=== PATIENT | female | born 1995 | race Caucasian/White ===

== ENCOUNTER 2020-09-05 02:35 | Emergency (ER) | payer OTHER, SELFPAY ==
[2020-09-05 02:36] VITALS: BP 104/65; PULSE 78; RESP 16; TEMP 36.8; O2SAT 100; BMI 25.7
--- NOTE | 2020-09-05 03:22 | EDS_ITS ---
HPI History of Present Illness Chief Complaint: Abd Pain Informant: patient Onset/Context/Timing Onset: Today Narrative Narrative: Patient presents here significant other after leaving work due to transient epigastric pain starting proximally 3 hours ago. States lasted an hour. States she tried to make herself vomit initially however did not help symptoms eventually got better. She has bowel movements every other day nonbloody nontarry. Reports over the last 6 months she has changed her diet and her lifestyle has lost 60 pounds intentionally. However states around 7 weeks ago symptoms of epigastric discomfort would come and go specially with meals. Denies fever or urinary symptoms. Prior to that denied any similar symptoms in the past. She takes Tylenol as needed does not take NSAIDs. She states she has an appoint with her PCP this coming Wednesday for evaluation. Prior similar symptoms: Yes PFSH PFSH Home Medications omeprazole 40 mg PO DAILY #30 cap 09/05/20 [Rx Last Taken Unknown] sucralfate [Carafate] 1 g PO BID #60 tab 09/05/20 [Rx Last Taken Unknown] Allergy/AdvReac Type Severity Reaction Status Date / Time No Known Allergies Allergy Verified 09/05/20 02:41 Social History Smoking Status: Never smoker ROS ROS ED Constitutional Constitutional ED: Denies chills, fever(s) or sweats Eyes Eyes: Denies change in vision ENT ENT ED: Denies dysphagia or sore throat Cardiovascular Cardiovascular: Denies chest pain, leg edema, palpitations or racing heartbeat Respiratory/Chest Respiratory/Chest: Denies cough, dyspnea or dyspnea on exertion Gastrointestinal Gastrointestinal: Reports abdominal pain; Denies diarrhea, nausea or vomiting Genitourinary Genitourinary ED: Denies dysuria, hematuria or urinary frequency Musculoskeletal Musculoskeletal: Denies back pain, extremity pain or neck pain Integumentary Denies rash or wounds Neurologic Neurologic: Denies headache(s), paresthesias or weakness EXAM Physical Exam Const Vital Signs: 09/05/20 02:36 Temperature 98.3 F Temperature Source Oral Pulse Rate 78 Respiratory Rate 16 Blood Pressure 104/65 Blood Pressure Mean 78 Pulse Ox 100 Positive well nourished and well developed General Appearance ED: well developed and NAD HEENT Reports moist mucous membranes normocephalic and atraumatic Eyes PERRL, EOMs intact bilaterally and conjunctivae normal General Eye ED: Yes normal appearance of both eyes Neck no lymphadenopathy and supple General: Negative for tenderness Chest Wall Chest: Negative for tenderness Resp normal respiratory effort and normal air movement Effort and Inspection: symmetric chest movement; Negative for respiratory distress Cardio regular rate, regular rhythm and no murmurs Peripheral Pulses: pulses 2+ throughout GI normal to inspection, nondistended, normoactive bowel sounds and non-tender GI Narrative: Negative Isabel's or McBurney's tenderness Palpation: Negative for guarding or rebound tenderness present Back/Spine no CVA tenderness and no thoracic nor lumbar tenderness Extremity normal to inspection General Extremety ED: Negative for edema or tenderness General Extremity: Negative for edema Neuro oriented x3 and no sensory deficits noted Sensorium / Orientation: awake and alert Skin no rashes or lesions noted and no wounds MDM MDM MDM Narrative Medical decision making narrative: Patient vitals stable currently symptoms resolved. History concerning for gastritis symptoms without bleeding. Discussed with patient will place on a PPI along with Carafate monitor symptoms. She has not had any endoscopies in the past. She will be given follow-up with general surgery for evaluation. All questions answered. Discharge Plan Triage Chief Complaint: Abd Pain ED Provider: Jann Adamson Dx/Rx/DC Orders Instructions: ED Gastritis (Adult), ED PEPTIC ULCER vs GASTRITIS Prescriptions: New omeprazole 40 mg capsule,delayed release(DR/EC) 40 mg PO DAILY Qty: 30 RF: 0 sucralfate [Carafate] 1 gram tablet 1 g PO BID Qty: 60 RF: 0 Stand Alone Forms: ED Work / School Excuse Primary Care Provider: [facility] ,Out of Referrals: Jermaine Lara MD [STAFF PHYSICIAN] - 1-2 Weeks [facility] ,Out of [Primary Care Provider] - Disposition Disposition: Home, Self Care
[2020-09-05 03:35] VITALS: BP 104/68; PULSE 77; RESP 18; O2SAT 96
== END 2020-09-05 03:36 | disposition home or self-care (01) ==
PROVIDERS: Emergency Provider Emergency Medicine
DX: R10.13 Epigastric pain (principal)
CPT/HCPCS: 99282